=== PATIENT | female | born 1985 | race Caucasian/White ===

== ENCOUNTER → 2016-07-07 | Outpatient (REF) | payer OTHER ==
[~2016-07-07] MED LIST: NORC1TAB4 PO
[2016-07-07 14:22] LABS: FREE T4 1.5 NG/DL (0.76-1.46)
== END ==
LOC: M LABDRAW1 13:23
PROVIDERS: ATTEND Internal Medicine Endocrinology, Diabetes & Metabolism
DX: E05.00 Thyrotoxicosis with diffuse goiter without thyrotoxic crisis or storm (principal)